=== PATIENT | female | born 1965 | race Caucasian/White ===

== ENCOUNTER → 2019-09-12 12:26 | Outpatient (CLI) | payer BC, SELFPAY ==
--- NOTE | ~2019-09-12 | US_ITS ---
EXAMINATION: US pelvic complete w TV DATE: 09/12/2019 12:55 INDICATION: Polycystic ovarian syndrome, prior endometrial ablation TECHNIQUE: Multiple transabdominal and endovaginal sonographic images of the pelvis were obtained. COMPARISON: 09/27/2018 FINDINGS: The uterus measures 7.8 x 4.3 x 5.5 cm. Hypoechoic areas of the uterus have the appearance of fibroids. One measuring 1.4 x 1.3 cm projects from the posterior uterine body and has the appearan ce of a subserosal fibroid. The endometrial complex measures 7 mm. The right ovary measures 1.8 x 1.1 x 1.7 cm. The left ovary measures 2.0 x 0.9 x 1.2 cm. There is normal vascular flow in the ovaries. There is no free fluid in the pelvis. IMPRESSION: 1. Small uterine fibroids. Reviewed, dictated and finalized at location A. IMPRESSION: 1. Small uterine fibroids.
== END ==
PROVIDERS: Visit Provider Nurse Practitioner Family
DX: E28.2 Polycystic ovarian syndrome (principal); R10.2 Pelvic and perineal pain; D25.9 Leiomyoma of uterus, unspecified
CPT/HCPCS: 76830; 76856

== ENCOUNTER → 2019-10-12 11:38 | Outpatient (CLI) | payer BC, SELFPAY ==
--- NOTE | ~2019-10-12 | MM_ITS ---
EXAMINATION: MM screening adelfo BI w isreal HISTORY: Screening TECHNIQUE: Craniocaudal and mediolateral oblique 3-D tomosynthesis images were obtained and synthetic 2-D images were generated. CAD analysis was submitted and interpreted. COMPARISON: Comparison to multiple prior studies sequentially, with oldest reviewed study dated 09/08. BREAST PARENCHYMAL COMPOSITION: There are scattered areas of fibroglandular density. FINDINGS: There is no evidence of suspicious mass, calcification, or architectural distortion to sugg est malignancy in either breast. There has been no suspicious interval change. IMPRESSION: 1. No mammographic evidence of malignancy. 2. Recommend routine screening mammography in one year. BI-RADS Category 1: Negative Reviewed, dictated and finalized at location A.
== END ==
PROVIDERS: Visit Provider Nurse Practitioner Family
DX: Z12.31 Encounter for screening mammogram for malignant neoplasm of breast (principal)
CPT/HCPCS: 77063; 77067

== ENCOUNTER 2019-11-10 17:16 | Emergency (ER) | payer BC, SELFPAY ==
[2019-11-10 17:26] VITALS: BP 205/100; PULSE 93; RESP 20; TEMP 37.2; O2SAT 99
--- NOTE | 2019-11-10 17:30 | ED.GENADULT ---
HPI - General Adult General Chief complaint: Unspecified Stated complaint: POS thrush Time Seen by Provider: 11/10/19 17:32 Source: patient and RN notes reviewed Mode of arrival: ambulatory Limitations: no limitations History of Present Illness HPI narrative: 53 year old female who presents to [facility] care with complaints of her tongue feeling sore and top of her mouth also at times, states tongue feels swollen. Patient states that she is taking doxycycline daily for Rosacea and she jus started hydroxyzine for anxiety. Minimal white patches noted on sides of tongue, roof of mouth lightly red. Throat is pink with no tonsil swelling or exudate, denies any difficulty with swallowing.Denies loss of taste or smell, no cough or any other complaints MD complaint: tongue and roof of mouth sore Onset (ago): day(s) (3) Location: mouth Radiation: non-radiation Severity: mild Severity scale (1-10): 2 Quality: burning and aching Pain Consistency: intermittent Relieving factors: none Exacerbating factors: eating Associated symptoms: denies other symptoms Treatments prior to arrival: none Related Data Home Medications Medication Instructions Recorded Confirmed aspirin [Aspir-81] 81 mg PO DAILY 11/10/19 11/10/19 cyanocobalamin (vitamin B-12) 1,000 mcg SUBCUT MONTHLY 11/10/19 11/10/19 doxycycline monohydrate 40 mg PO DAILY 11/10/19 11/10/19 ergocalciferol (vitamin D2) 1,250 mcg PO WEEKLY 11/10/19 11/10/19 [Vitamin D2] hydroxyzine HCl 10 mg PO TID PRN 11/10/19 11/10/19 valacyclovir 1,000 mg PO Q12H 11/10/19 11/10/19 Allergies Allergy/AdvReac Type Severity Reaction Status Date / Time No Known Allergies Allergy NONE Verified 11/10/19 17:45 Review of Systems Review of Systems: Narrative: CONSTITUTIONAL: Denies fever, chills, or sweats. EYES: Denies visual changes, redness, or discharge. ENT: Denies rhinorrhea, congestion, sore throat, or otalgia.States tongue and roof of mouth is sore CARDIOVASCULAR: Denies chest pain, palpitations, or edema. RESPIRATORY: Denies cough or dyspnea. GASTROINTESTINAL: Denies abdominal pain, nausea, vomiting, or diarrhea. GENITOURINARY: Denies dysuria or hematuria. SKIN: Denies rash or itching. MUSCULOSKELETAL: Denies back pain, joint pain, or myalgia. NEUROLOGIC: Denies headache, numbness, or weakness. PSYCHIATRIC: Positive anxiety or depression. All systems reviewed & are unremarkable except as noted in HPI and below PMFSH Past Medical History Medical History (Updated 11/10/19 @ 18:25 by Laura Ram NP) Anxiety and depression Arthritis DVT (deep venous thrombosis) Hypertension Kidney stones Pulmonary embolism Rosacea UTI (urinary tract infection) Surgical History Surgical History (Updated 11/10/19 @ 17:36 by Laura Ram NP) History of arthroscopic knee surgery History of dilatation and curettage Tubal ligation status Family History Family History (Updated 04/19/18 @ 14:44 by DOCTOR UNKNOWN) Mother Family history of malignant neoplasm, Onset Age: 72 Social History Social History (Updated 11/10/19 @ 18:15 by Laura Ram NP) Smoking status: Never smoker Alcohol intake: current Living arrangements: with family Gender identity (if verbalized by the patient): Female Comments At time of signature, agree with nursing past medical, surgical, social and family history. There is no relevant family history pertinent to the presenting complaint Exam Narrative: Exam Narrative: GENERAL: Well-appearing, well-nourished, and in no acute distress. HEAD: Normocephalic, atraumatic. EYES: PERRLA and EOMI. ENT: Nares clear, no rhinorrhea or epistaxis. Mucous membranes moist.TM's normal with good light reflex, tongue minimal redness with scant amount of white on edges, roof of moth lightly red, no white patches noted, throat pink with no enlarged tonsils or swelling noted. NECK: Supple.no lymphadenopathy CHEST: Clear to auscultation. No respiratory distres
[2019-11-10 17:51] VITALS: BP 180/94
== END 2019-11-10 17:59 | disposition home or self-care (01) ==
PROVIDERS: Emergency Provider Registered Nurse; PCP Nurse Practitioner Family
DX: B37.0 Candidal stomatitis (principal); M19.90 Unspecified osteoarthritis, unspecified site; I10 Essential (primary) hypertension; Z86.711 Personal history of pulmonary embolism; Z86.718 Personal history of other venous thrombosis and embolism; Z79.82 Long term (current) use of aspirin
CPT/HCPCS: 99213; G0463

== ENCOUNTER 2020-11-29 15:01 | Outpatient (CLI) | payer BC, SELFPAY ==
--- NOTE | ~2020-11-29 | MR_ITS ---
EXAMINATION: MR knee RT wo con DATE: 11/29/2020 15:46 INDICATION: Right knee pain TECHNIQUE: Magnetic resonance imaging (MRI) of the right knee was performed without intravenous contr ast. Sequences included coronal PD-weighted FSE, coronal PD-weighted FS FSE, sagittal T2-weighted FS E, sagittal PD-weighted FS FSE and axial PD weighted fat saturated FSE. COMPARISON: None. FINDINGS: Medial compartment: There is a tear of indeterminate morphology most likely either a radial or complex involving the inne r third of the posterior horn of the medial. Partial-thickness cartilage loss which appears to involv e at least 50% the cartilage thickness but without degenerative subchondral changes at the anterior t o central weightbearing medial femoral condyle. Mild chondral surface regularity along the central, m edial and posterior aspect of the medial tibial plateau. There is mild subarticular edema along the p osterior rim of the medial tibial plateau. Lateral compartment: Lateral meniscus is normal. Subtle cartilage heterogeneity suggesting partial thickness fissuring at the medial side of the anterior weightbearing lateral femoral condyle and at the central aspect of th e lateral tibial plateau. Patellofemoral compartment: Deep chondral ulceration involving greater than 50% the cartilage thickness along significant portion s of the lateral patellar facet deep chondral fissuring at the patellar apical ridge and medial facet . Additional partial thickness chondral ulceration at the central aspect of the lateral trochlea. The re is some chondral fissuring at the inferior aspect of the trochlear groove. Ligaments and tendons: Anterior and posterior cruciate ligaments are normal. The medial collateral ligament and fibular marya ateral ligament complex are normal. Mild tendinopathy without discrete tear of the patellar tendon an d distal quadriceps tendon. The visualized medial and lateral hamstring tendons as well as the ilioti bial band are normal. Fluid: Small right knee joint effusion along with mild synovitis at the suprapatellar pouch. No loose osteoc hondral bodies identified. Osseous/other: There is some red marrow reexpansion in the metaphyseal and metadiaphyseal regions of the distal femu r and proximal tibia and fibula. Otherwise normal marrow signal. No fracture or pathologic marrow rep lacing process. IMPRESSION: 1. Tear at the posterior horn of the medial meniscus, unclear whether complex or radial. 2. Mild tricompartmental osteoarthritis with regions of moderate grade chondromalacia in all 3 compar tments. 3. Small right knee joint effusion. 4. Mild tendinopathy of the extensor mechanism. Reviewed, dictated and finalized at location A. IMPRESSION: 1. Tear at the posterior horn of the medial meniscus, unclear whether complex o r radial. 2. Mild tricompartmental osteoarthritis with regions of moderate grade chondrom alacia in all 3 compartments. 3. Small right knee joint effusion. 4. Mild tendinopathy of the extensor mechanism.
== END 2020-11-29 15:02 | disposition home or self-care (01) ==
PROVIDERS: PCP Nurse Practitioner Family; Visit Provider Nurse Practitioner Family
DX: S83.241A Other tear of medial meniscus, current injury, right knee, initial encounter (principal); M17.11 Unilateral primary osteoarthritis, right knee; M67.861 Other specified disorders of synovium, right knee; X58.XXXA Exposure to other specified factors, initial encounter
CPT/HCPCS: 73721

== ENCOUNTER → 2020-12-12 14:54 | Outpatient (CLI) | payer BC, SELFPAY ==
--- NOTE | ~2020-12-12 | MM_ITS ---
EXAMINATION: MM screening adelfo BI w isreal HISTORY: Screening mammogram TECHNIQUE: Craniocaudal and mediolateral oblique 3-D tomosynthesis images were obtained and synthetic 2-D images were generated. CAD analysis was submitted and interpreted. COMPARISON: 10/12/2019, 09/27/2018, 09/08/2017 bilateral digital screening mammogram examinations BREAST PARENCHYMAL COMPOSITION: There are scattered areas of fibroglandular density. FINDINGS: Stable mild fibroglandular asymmetry and occasional benign calcifications. There is no evid ence of suspicious mass, calcification, or architectural distortion to suggest malignancy in either b reast. There has been no suspicious interval change. IMPRESSION: 1. No mammographic evidence of malignancy. 2. Recommend routine screening mammography in one year. BI-RADS Category 2: Benign finding(s). Reviewed, dictated and finalized at location A.
== END ==
PROVIDERS: PCP Nurse Practitioner Family; Visit Provider Nurse Practitioner Family
DX: Z12.31 Encounter for screening mammogram for malignant neoplasm of breast (principal)
CPT/HCPCS: 77063; 77067

== ENCOUNTER 2021-01-11 16:28 | Emergency (ER) | payer BC, SELFPAY ==
--- NOTE | 2021-01-11 16:37 | ED.FEMALEGU ---
HPI - Female Genitourinary General Chief complaint: Urogenital-Female Stated complaint: Poss UTI Time Seen by Provider: 01/11/21 16:37 Source: patient Mode of arrival: ambulatory Limitations: no limitations History of Present Illness HPI Narrative: Patrica Liang is a 55 yo female with a PMH of anticoagulation for DVT, rosacea, high cholesterol, calculi. torn meniscus and Denis's cyst, who comes with a dysuria following a yearly celebration in a hot tub. Has frequency and suprapubic pain does not feel like she can really empty her bladder fully Related Data Home Medications Medication Instructions Recorded Confirmed aspirin [Aspir-81] 81 mg PO DAILY 11/10/19 11/10/19 cyanocobalamin (vitamin B-12) 1,000 mcg SUBCUT MONTHLY 11/10/19 11/10/19 doxycycline monohydrate 40 mg PO DAILY 11/10/19 11/10/19 ergocalciferol (vitamin D2) 1,250 mcg PO WEEKLY 11/10/19 11/10/19 [Vitamin D2] hydroxyzine HCl 10 mg PO TID PRN 11/10/19 11/10/19 valacyclovir 1,000 mg PO Q12H 11/10/19 11/10/19 Allergies Allergy/AdvReac Type Severity Reaction Status Date / Time No Known Allergies Allergy NONE Verified 01/11/21 16:32 Review of Systems Review of Systems: CONSTITUTIONAL: Denies fever, chills, sweats. EYES: Denies visual changes, redness, discharge. ENT: Denies rhinorrhea, congestion, sore throat, otalgia. CARDIOVASCULAR: Denies chest pain, palpitations, edema. RESPIRATORY: Denies dyspnea, wheezing, cough GASTROINTESTINAL: Denies abdominal pain, nausea, vomiting, diarrhea. GENITOURINARY: Has dysuria, hematuria, abnormal discharge SKIN: Denies rash or itching. NEUROLOGIC: Denies numbness, or focal weakness. PSYCHIATRIC: Denies anxiety or depression. [facility] Past Medical History Medical History Anxiety and depression Arthritis DVT (deep venous thrombosis) Hypertension Kidney stones Pulmonary embolism Rosacea UTI (urinary tract infection) Surgical History Surgical History History of arthroscopic knee surgery History of dilatation and curettage Tubal ligation status Family History Family History Mother Family history of malignant neoplasm, Onset Age: 72 Social History Social History Smoking status: Never smoker Alcohol intake: current Gender identity (if verbalized by the patient): Female Comments At time of signature, I agree with nursing past medical, surgical, social and family history. There is no relevant family history pertinent to the presenting complaint. Exam Narrative: GENERAL: This is a well-nourished, well-developed patient, in mild distress. HEAD: normocephalic, atraumatic. EYES: Sclera clear/white. Vision is grossly intact. EARS: External ears normal,. Hearing grossly intact. NOSE: External nose normal without nasal discharge, nares without redness, no rhinorrhea. THROAT: Mucous membranes moist, NECK: Neck supple, CARDIOVASCULAR: Regular rate and rhythm without murmurs, gallops, or rubs. RESPIRATORY: Clear to auscultation. Breath sounds equal bilaterally. No wheezes, rales, or rhonchi. GASTROINTESTINAL: Abdomen soft, mild suprapubic discomfort SKIN: warm, intact with no suspicious lesions or rash, good texture and turgor. NEURO: awake, alert, and oriented to person, place and time. There were no obvious focal neurologic abnormalities. Steady gait EXTREMITIES: Normal range of motion. BACK: Nontender without deformity Course Course Emergency Course: Patient comes here for dysuria after experiencing an hot tub been on Macrobid earlier in the month and still has symptoms UA dip is negative for all substances Start Keflex 500 mg 1 twice daily x5 days since urine is negative encouraged to follow-up with urology if continued of symptoms Vital Signs Vital signs: Vital Signs
[2021-01-11 16:39] VITALS: BP 147/85; PULSE 103; RESP 18; TEMP 37.2; O2SAT 100
== END 2021-01-11 17:04 | disposition home or self-care (01) ==
PROVIDERS: Emergency Provider Nurse Practitioner; PCP Nurse Practitioner Family
DX: R30.0 Dysuria (principal); M19.90 Unspecified osteoarthritis, unspecified site; I10 Essential (primary) hypertension; Z86.711 Personal history of pulmonary embolism; Z86.718 Personal history of other venous thrombosis and embolism; F41.9 Anxiety disorder, unspecified; Z79.82 Long term (current) use of aspirin
CPT/HCPCS: 81003; 99213; G0463

== ENCOUNTER 2022-02-05 16:45 | Outpatient (CLI) | payer BC, SELFPAY ==
--- NOTE | ~2022-02-05 | MM_ITS ---
EXAMINATION: MM screening adelfo BI w isreal HISTORY: Screening TECHNIQUE: Craniocaudal and mediolateral oblique 3-D tomosynthesis images were obtained and synthetic 2-D images were generated. CAD analysis was submitted and interpreted. COMPARISON: Comparison to multiple prior studies sequentially, with oldest reviewed study dated 09/08. BREAST PARENCHYMAL COMPOSITION: There are scattered areas of fibroglandular density. FINDINGS: There is no evidence of suspicious mass, calcification, or architectural distortion to sugg est malignancy in either breast. There has been no suspicious interval change. IMPRESSION: 1. No mammographic evidence of malignancy. 2. Recommend routine screening mammography in one year. BI-RADS Category 1: Negative Reviewed, dictated and finalized at location A. L TECHNICIAN
== END 2022-02-05 16:46 | disposition home or self-care (01) ==
PROVIDERS: PCP Nurse Practitioner Family; Visit Provider Obstetrics & Gynecology
DX: Z12.31 Encounter for screening mammogram for malignant neoplasm of breast (principal)
CPT/HCPCS: 77063; 77067

== ENCOUNTER → 2023-03-16 12:42 | Outpatient (CLI) | payer BC, SELFPAY ==
--- NOTE | ~2023-03-16 | MM_ITS ---
EXAMINATION: MM screening adelfo BI w isreal HISTORY: Screening mammogram TECHNIQUE: Craniocaudal and mediolateral oblique 3-D tomosynthesis images were obtained and synthetic 2-D images were generated. CAD analysis was submitted and interpreted. COMPARISON: 02/05/2022, 12/12/2020, 10/12/2019 bilateral screening mammogram examinations BREAST PARENCHYMAL COMPOSITION: There are scattered areas of fibroglandular density. FINDINGS: Stable mild fibroglandular asymmetry. There is no evidence of suspicious mass, calcificatio n, or architectural distortion to suggest malignancy in either breast. There has been no suspicious i nterval change. IMPRESSION: 1. No mammographic evidence of malignancy. 2. Recommend routine screening mammography in one year. BI-RADS Category 1: Negative Reviewed, dictated and finalized at location A. CTION SPECIALIST
== END ==
PROVIDERS: PCP Obstetrics & Gynecology; Visit Provider Obstetrics & Gynecology
DX: Z12.31 Encounter for screening mammogram for malignant neoplasm of breast (principal)
CPT/HCPCS: 77063; 77067

== ENCOUNTER 2024-03-17 07:29 | Outpatient (CLI) | payer BC, SELFPAY ==
--- NOTE | ~2024-03-17 | MM_ITS ---
EXAMINATION: MM screening adelfo BI w isreal HISTORY: Screening TECHNIQUE: Craniocaudal and mediolateral oblique 3-D tomosynthesis images were obtained and synthetic 2-D images were generated. CAD analysis was submitted and interpreted. COMPARISON: 03/16/2023 and dating back to 10/12/2019 BREAST PARENCHYMAL COMPOSITION: There are scattered areas of fibroglandular density. FINDINGS: Bulky calcifications detected bilaterally, stable and benign in appearance. Stable parenchymal pattern without suspicious microcalcifications, architectural distortion, discrete masses or significant asymmetry. IMPRESSION: 1. No mammographic evidence of malignancy. 2. Recommend routine screening mammography in one year. BI-RADS Category 2: Benign finding(s). Reviewed, dictated and finalized at location A. [employer]
== END 2024-03-17 07:30 | disposition home or self-care (01) ==
LOC: MICIMG 07:29
PROVIDERS: PCP Obstetrics & Gynecology; Visit Provider Obstetrics & Gynecology
DX: Z12.31 Encounter for screening mammogram for malignant neoplasm of breast (principal)
CPT/HCPCS: 77063; 77067

== ENCOUNTER 2024-08-03 14:52 | Emergency (ER) | payer BC, SELFPAY ==
--- OUTSIDE RECORDS SUMMARY | 2024-08-03 14:55 | XMS_ITS | Encounter Summary ---
Author Organization [facility] Address [address] [place] [address] Care Team Providers Care Developer Support Engineer Name Role Phone Unavailable Primary Care Provider Unavailabl e Encounter Details Date Type Department Care Team (Late st Contact Info) Description 01/20/2024 Lab Requisition [facility] - DermPath Lab [address] [place] [address] Ada Arellano MD [address] [place] [address] [place] [address] Neoplasm of uncertain behavior of skin Social History Tobacco Use Types Packs/Day Years Used Date Smoking Tobacco: Never Assessed Comments Unknown Sex and Gender Information Value Date Recorded Sex Assigned at Not on file Legal Sex Female 10:06 AM CDT Gender Identity Not on file Sexual Orientation Not on file documented as of this encounter Plan of Treatment Not on file documented as of this encounter Procedures Procedure Name Priority Date/Time Associated Diagnosis Comments DERMATOPATHOLOGY Routine 01/19/2024 3:33 AM CDT Neoplasm of uncertain behavior of skin documented in this encounter Results * DERMATOPATHOLOGY (01/19/2024 3:33 AM CDT) Case Report Dermatopathology Report Case: [id number] Authorizing Provider: Ada Arellano MD Collected: 01/19/2024 03:33 AM Ordering Location: [facility] - Received: 01/21/2024 01:09 PM DermPath Lab Pathologist: Rosaura Irizarry MD Specimen: Skin, left buttock 2:39 PM [facility] Final Diagnosis Specimen A. 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 The specimen consists of a shave biopsy measuring 12x7x2 mm. Jar 0. 2:39 PM [facility] Microscopic Description Specimen A. SKIN, left buttock: This is a junctional nevus. There is a lentiginous proliferation of melanocytes between nests of cells along the dermal-epidermal junction, highlighted by MART-1/Melan-A immunohistochemical staining. 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 The performance characteristics of the stain(s) cited in this report were developed and its performance characteristic determined by the Dermatopathology Laboratory at [facility], directed by Dr. Heena Rosales. These tests need not be, and therefore are not, approved by the [place] Food and Drug Administration. The tests are used for clinical purposes. Billing Codes Specimen Charges Stain Charges 58149 1 98258 1 2:39 PM [facility] Embedded Images 2:39 PM [facility] Pathology/Cytolo gy TISSUE SPECIMEN FROM SKIN / Unknown 01/19/2024 3:33 AM CDT 01/21/2024 1:09 PM CDT us Ada Arellano MD LAB - PATHOLOGY/CYTOLOGY ORDERAB LES Final Result DERMATOPATHOLOGY LABORATORY [facility] - Department of Dermatology [address] [phone] documented in this encounter Visit Diagnoses Diagnosis Neoplasm of uncertain behavior of skin documented in this encounter
--- OUTSIDE RECORDS SUMMARY | 2024-08-03 14:55 | XMS_ITS | Encounter Summary ---
Author Organization [facility] Address [address] [place] [address] Care Team Providers Care Sales Operations Lead Name Role Phone Ruthy Moran Primary Care Provider [phone] Encounter Details Date Type Department Care Team (Late Contact Info) Description 09/30/2023 MyChart Message Enc [facility] Family & Internal Medicine [address] [phone] Ruthy Moran FNP [address] [place] [id number] Nathen Liang siddharth Social History Tobacco Use Types Packs/Day Years Used Date Smoking Tobacco: Never Passive Smoke Exposure: Never Smokeless Tobacco: Never Comments:Never Smoker Alcohol Use Standard Drinks/Week Comments Yes 1.7 (1 standard drink = 0.6 oz p ure alcohol) 2 shots a weekend AUDIT-C Answer Date Recorded Frequency of Alcohol Consumption 2-3 times a wee k 04/25/2018 Average Number of Drinks Not on file 019 Frequency of Binge Drinking Not on file 06/2018 PHQ-2 Answer Date Recorded Patient Health Questionnaire-2 Score 0 09/27/2023 Comments No Sex and Gender Information Value Date Recorded Sex Assigned at Not on file Legal Sex Female 6:24 PM CDT Gender Identity Not on file Sexual Orientation Not on file documented as of this encounter Plan of Treatment Upcoming Encounters Date Type Department Care Team (Late st Contact Info) Description 10/03/2024 2:40 PM CDT Office Visit [facility] Family & Internal Medicine [facility] [address] [place] [address] Ruthy Moran FNP [address] [place] [address] 10/27/2024 10:00 AM CDT Office Visit [facility] Orthopedic & Sports Medicine - [place] [address] [place] [address] Tato Tolentino PA [address] [place] [address] 11/03/2024 10:00 AM CDT Office Visit [facility] [place] [address] [place] [address] Tato Tolentino PA [address] [place] [address] 11/10/2024 10:00 AM CDT Office Visit [facility] [place] [address] [place] [address] Tato Tolentino PA [address] [place], [place] [phone] documented as of this encounter Visit Diagnoses Not on filedocumented in this encounter Additional Health Concerns Assessment Noted Time PHQ-9 Depression Total Score: 0 08/26/19 24 3:56 PM CDT documented as of this encounter Care Teams Sales Operations Lead Relationship Specialty Start Date End Date Ruthy Moran FNP [facility] [place] [address] PCP - General Nurse Practitioner Family 04/19/18 documented as of this encounter
--- OUTSIDE RECORDS SUMMARY | 2024-08-03 14:55 | XMS_ITS | Clinical Summary ---
Author Organization [facility] Address [facility] [place] [address] Care Team Providers Care Patient Account Representative Name Role Phone Kam Moran BOOKER Primary Care Provider [phone] Allergies No known active allergies Medications multi vitamin/minerals tablet Take 1 tablet by mouth daily. Active cyanocobalamin 250 MCG Tab Take 1 tablet (250 mcg total) by mouth daily. Active Collagen-Vitamin C-Biotin (COLLAGEN 1500/C OR) OTC Collagen Peptides Active omega-3 fatty acid (FISH OIL) 500 MG capsule Take 1 capsule (500 mg total) by mouth daily. Active ELIQUIS 2.5 MG tablet Take 1 tablet (2.5 mg total) by mouth 2 (two) times daily. 3 Active B-D 3CC LUER-YONATHAN SYR 25GX1 25G X 1 3 ML MiscIndications:V itamin B 12 deficiency USE DIRECTED MONTHLY FOR B12 INJECTIONS 3 each 1 4 Active magnesium oxide (MAG-OX) 250 MG tablet Take 1 tablet (250 mg total) by mouth daily. Active valACYclovir (VALTREX) 1 g tabletIndications :H/O herpes labialis take 1 tablet by mouth daily 90 tablet 1 4 Active diclofenac sodium (VOLTAREN) 1 % gelIndications:Ar thritis of right knee,Arthritis of left knee Apply 4 g topically 4 (four) times daily. 350 g 5 Active lisinopril-hydroC HLOROthiazide (ZESTORETIC) 10-12.5 MG tabletIndications :Essential hypertension TAKE 1 TABLET BY MOUTH DAILY 90 tablet 1 5 Active hydrOXYzine (ATARAX) 10 MG tabletIndications :Anxiety Take 1 tablet (10 mg total) by mouth 3 (three) times daily. TAKE 1 TABLET BY MOUTH THREE TIMES DAILY NEEDED FOR ITCHING. PLEASE CONTACT OFFICE FOR APPOINTMENT. 90 tablet 5 Active vitamin D2, ergocalciferol, (DRISDOL) 1.25 mg capsuleIndication s:Vitamin D deficiency TAKE ONE CAPSULE BY MOUTH ONE DAY A WEEK 12 capsule 5 Active Active Problems Problem Noted Date Diagnosed Date Class 2 severe obesity due t o excess calories with serious comorbidity and body mass index (BMI) of 36.0 to 36.9 in adult 10/28/2022 Arthritis of left knee 08/14/2022 Arthritis of right knee 01/30/2022 Family history of bleeding disorder 10/27/2021 Elevated fasting glucose 10/27/2021 Chronic deep vein thrombosis (DVT) of distal vein of right lower extremity ([facility]) 10/27/2021 Chronic pain of right knee 11/11/2020 Acute bilateral low back pain without sciatica 0 08/28/2020 Spasm 08/28/2020 Vitamin B 12 deficiency 06/06/2020 Acne vulgaris 06/06/2020 Anxiety 06/06/2020 Vaginal yeast infection 09/06/2019 PCOS (polycystic ovarian syndrome) 09/06/2019 Pelvic pain 09/06/2019 Other chronic pain 05/10/2019 Other fatigue 05/10/2019 Perimenopausal symptom 05/10/2019 H/O herpes labialis 04/25/2018 Vitamin D deficiency 04/25/2018 Rosacea 04/25/2018 Essential hypertension 04/25/2018 Resolved Problems Problem Noted Date Diagnosed Date Resolved Date Acute pain of right knee 09/09/2020 Lower abdominal pain 09/06/2019 024 BMI 32.0-32.9,adult 04/25/2018 08/26/19 24 Immunizations Immunization Administration Dates Next Due Fluzone 6 Months+ Quad (0.5 mL Prefilled Syringe ) 05/21/2022,03/13/2021 Influenza Adult (Generic) 02/03/2020 MODERNA COVID-19 (12+) MRNA, LNP-S, PF, 100 MCG/ 0.5 ML DOSE 06/01/2020,05/04/2020 MODERNA COVID-19 (CLINICAL LAB SPECIALIST JOANNA ITA), MRNA, LNP-S, PF, 50 MCG/ 0.25 ML DOSE 03/26/2021 Tdap (Adacel) 12/25/2021 Family History Medical History Relation Comments No Known Problems Brother CHF Father Hypertension Father Cancer Mother Lung cancer due to smoking, went to brain Hypertension Mother Lung Cancer Mother No Known Problems Sister Relation Status Comments Brother Father Mother Sister Social History Tobacco Use Types Packs/Day Years Used Date Smoking Tobacco: Never Passive Smoke Exposure: Never Smokeless Tobacco: Never Tobacco Cessation:Counseling Given: No Comments:Never Smoker Alcohol Use Standard Drinks/Week Comments Yes 1.7 (1 standard drink = 0.6 oz p ure alcohol) 2 shots a weekend AUDIT-C Answer Date Recorded Frequency of Alcohol Consumption 2-3 times a wee k 04/25/2018 Average Number of Drinks Not on file 019 Frequency of Binge Drinking Not on file 06/2018 PHQ-2 Answer Date Recorded Patient Health Questionnaire-2 Score 0 04/07/2024 Comments No Sex and Gender Information Value Date Recorded Sex Assigned at Not on file Legal Sex Female 6:24 PM CDT Gender Identity Not on file Sexual Orientation Not on file Last Filed Vital Signs Vital Sign Reading Time Taken Comments Blood Pressure 151/86 04/28/2024 11:34 AM SPEECH LANGUAGE PATHOLOGY ASSISTANT Pulse 82 04/28/2024 10:54 AM SPEECH LANGUAGE PATHOLOGY ASSISTANT Temperature 36 C (96.8 F) 04/28/2024 10:54 AM SPEECH LANGUAGE PATHOLOGY ASSISTANT Respiratory Rate 16 08/26/2023 2:45 PM CDT Oxygen Saturation 98% 04/28/2024 10: 54 AM SPEECH LANGUAGE PATHOLOGY ASSISTANT Inhaled Oxygen Concentration - - Weight 102.2 kg (225 lb 6.4 oz) 025 10:54 AM SPEECH LANGUAGE PATHOLOGY ASSISTANT Height 162.6 cm (5' 4 ) 04/28/2024 10:5 4 AM SPEECH LANGUAGE PATHOLOGY ASSISTANT Body Mass Index 38.69 04/28/2024 10:54 AM SPEECH LANGUAGE PATHOLOGY ASSISTANT Plan of Treatment Upcoming Encounters Date Type Department Care Team (Late st Contact Info) Description 10/03/2024 2:40 PM CDT Office Visit [facility] Family & Internal Medicine [id number] [place] [address] Kam Moran, [address] [address] [place] [address] 10/27/2024 10:00 AM CDT Office Visit [facility] Orthopedic & Sports Medicine [facility] [address] [place] [address] Tato Tolentino PA [address] [place] [address] 11/03/2024 10:00 AM CDT Office Visit [facility] Orthopedic & Sports Medicine [facility] [address] [place] [address] Tato Tolentino PA [address] [place], [place] [id number] 11/10/2024 10:00 AM CDT Office Visit [facility] Orthopedic & Sports Medicine [facility] [address] [place] [address] Tato Tolentino, BETH [address] [place] [address] Health Maintenance Due Date Last Done Comments Hepatitis C 12/03/1985 Hepatitis B Vaccines (1 of 3 - 19+ 3-dose series) 12/03/1986 Pneumococcal Vaccine: 50+ Years (1 of 1 - PCV) 12/03/2017 Annual Physical 10/28/2023 10/27/2022, 11/11/2020 Cervical Cancer Screening Pap Smear (Age 30 to 64) Every 3 Years 11/12/2023 11/11/2020, 09/06/2019 COVID-19 Vaccine (2023- season) 2023 03/26/2021, 06/01/2020, 05/04/2020 Zoster Vaccines (1 of 2) 08/25/2024 Pos tponed from 12/03/2017 (Going to Outside Clinic) Cervical Cancer Screening Pap with HPV Testing (Age 30 to 64) Every 5 Years 11/11/2025 11/11/2020, 09/06/2019 Cervical Cancer Screening with HPV 11/11/2025 Mammogram Screening 03/17/2026 03/17/2024, 02/05/2022, 12/12/2020, Additional history exists Colorectal Cancer Screening Colonoscopy (10 Years) 06/22/2028 06/22/2018 DTaP, Tdap and Td Vaccines (2 - Td or Tdap) 12/26/2031 12/25/2021 PHQ-2 (Physician Papillion) Completed 04/07/2024 Meningococcal B Vaccine Aged Out No l onger eligible based on patient's age to complete this topic Meningococcal Vaccine Aged Out No anurag randolph eligible based on patient's age to complete this topic RSV Immunizations Under 20 Months Aged Out No longer eligible based on patient's age to complete this topic Procedures Procedure Name Priority Date/Time Associated Diagnosis Comments MAMMOGRAM GENERIC (SCAN ORDER) 03/17/2024 HUMAN PAPILLOMAVIRUS, HIGH-RISK TYPES Routine 11/11/2020 12:00 PM CDT CYTOPATH CERV/VAG THIN LAYER Routine 11/11/2020 6:19 AM CDT COLONOSCOPY GENERIC (SCAN ORDER) Routine 06/22/2018 12:00 AM CDT from Last 3 Months or Most Recently Relevant to Health Maintenance Results * MAMMOGRAM GENERIC (SCAN ORDER) (03/17/2024) Anatomical Region Laterality Modality Other 03/17/2024 [facility] Scanned SCANNING Final Resu lt * (ABNORMAL) HUMAN PAPILLOMAVIRUS, HIGH-RISK TYPES (11/11/2020 12:00 PM CDT) SPEC DESCRIPTION CERVICAL/ ENDOCERVI JESSICA 11/14/2020 7:49 AM CDT [facility] HPV DNA HIGH RISK POSITIVE( A) NEGATIVE 11/15/2020 10:31 AM CDT [facility] Comment:SEE CYTOLOGY REPORT 11/11/2020 12:0 0 PM CDT Kam CELESTE PATHOLOGY/CYTOLOGY ORDERABLES Final Result [facility] [address] [place] [address], * Cytopath Cerv/Vag Thin Layer (11/11/2020 6:19 AM CDT) THIN PREP PAP [facility] [address] [place] [address] Department of Pathology Pathology Report CERVICAL/VAGINAL PAP SMEAR REPORT Name: PATRICA LIANG Age: 9 1965 (Age: 54) Location: [facility] Sex: F Collected Date: 11/11/2020 [facility] #: [id number] Date Received: 11/14/2020 Date Reported: 11/19/2020 Provider: KAM CELESTE-C INTERPRETATION CERVICAL/ENDOCERVI JESSICA: SATISFACTORY FOR EVALUATION. ENDOCERVICAL/TRANS FORMATION ZONE COMPONENT PRESENT. NEGATIVE FOR INTRAEPITHELIAL LESION OR MALIGNANCY. POSITIVE FOR HIGH RISK HPV. The FDA approved Aptima HPV assay is an in vitro nucleic acid amplification test for the qualitative detection of E6/E7 viral messenger RNA (mRNA) from 14 high-risk types of human papillomavirus (HPV) in cervical specimens. The high-risk HPV types detected by the assay include: 16,18,31,33,35,39, 45,51,52,56,58,59, 66, and 68. Electronically Signed Out МАРИЯ Salas (ASCP) CLINICAL HISTORY Z12.4 Z11.51 SCREENING PAP TEST AND SCREENING HPV ThinPrep Pap Test with HR HPV testing requested. Date of Last Menstrual Period: 11/07/20 Menstrual Status: Irregular SPECIMEN SUBMITTED CERVICAL/ENDOCERVI JESSICA Specimen Received:1 Thin Prep Vial, Image Assisted Pap (SMD) Please note: The Pap smear is not a diagnostic test. It is a screening test. Negative results on combined screening (Pap test and HPV-DNA) have a high negative predictive value (99.1-100 percent) for cervical cancer. The pap test is not effective in detecting cervical adenocarcinoma. [facility] 11/11/2020 6:19 AM CDT 11/14/2020 6:19 AM CDT Comment:CERVICAL/ENDOCERVICA L Kam CELESTE PATHOLOGY/CYTOLOGY ORDERABLES Final Result [facility] [address] [place] [address], * COLONOSCOPY (06/22/2018 12:00 AM CDT) 06/22/2018 us Documents Scanned SCANNING Final Result Performing Organization Address City/[facility]/ZIP Co de Phone Number [facility] [address] [address] from Last 3 Months or Most Recently Relevant to Health Maintenance Insurance [facility] Care Teams Patient Account Representative Relationship Specialty Start Date End Date Kam Moran FNP [address] [place] [phone] PCP - General Nurse Practitioner Family 04/19/18
--- OUTSIDE RECORDS SUMMARY | 2024-08-03 14:55 | XMS_ITS | Clinical Summary ---
Author Organization [facility] Address [address] [place] [address] Care Team Providers Care Quality Assurance Tech Name Role Phone Ruthy Moran APRN, CNP Primary Care Provider Allergies No known active allergies Medications cyanocobalamin (VITAMIN B-12) 1000 MCG/ML Solution INJECT 1ML IN THE MUSCLE EVERY MONTH 06/24/19 23 Active valACYclovir (VALTREX) 1 GM Tablet Take 1,000 mg by mouth daily. 07/22/19 22 Active ergocalciferol (VITAMIN D) 64762 UNIT Capsule TAKE 1 CAPSULE BY MOUTH EVERY WEEK 05/21/19 23 Active lisinopril-hydroCHL OROthiazide (PRINZIDE, ZESTORETIC) 10-12.5 MG Tablet Take 1 Tablet by mouth daily. 07/04/19 23 Active hydrOXYzine (ATARAX) 10 MG Tablet hydroxyzine HCl 10 mg tablet TAKE 1 TABLET BY MOUTH THREE TIMES DAILY NEEDED FOR ITCHING 12/28/19 21 Active Multiple Vitamin (MULTIVITAMIN PO) Take by mouth daily. Active Furlong-3 Fatty Acids (Furlong-3 Fish Oil) 500 MG Capsule Take 500 mg by mouth. Active Cyanocobalamin (VITAMIN B 12 PO) Take by mouth. Otc capsule Active apixaban (Eliquis) 2.5 MG TabletIndications:H istory of Thromboembolic Disease,Prophylaxis of Venous Thromboembolism Take 1 Tablet by mouth 2 times daily. Indications: History of Disease involving a Thrombosis or an Embolism, Prevention of Unwanted Clot in Veins 180 Tablet 1 03/03/20 24 Active Active Problems No known active problems Immunizations Immunization Administration Dates Next Due Covid-19, Mrna, Lnp-s, PF, 5 0 mcg/0.25 mL dose (Moderna) 03/26/2021 Family History Medical History Relation Name Comments Heart Attack Father Cerebral Anuerysm Mother Lung Cancer Mother Relation Name Status Comments Brother Alive Father Mother Social History Tobacco Use Types Packs/Day Years Used Date Smoking Tobacco: Never Smokeless Tobacco: Never Tobacco Cessation:Counseling Given: Not Answered Alcohol Use Standard Drinks/Week Comments Yes 1 (1 standard drink = 0.6 oz pur e alcohol) 2 times a week Comments Unknown Sex and Gender Information Value Date Recorded Sex Assigned at Not on file Legal Sex Female 11:29 AM PORCELAIN ENAMEL SPRAYER Gender Identity Not on file Sexual Orientation Not on file Last Filed Vital Signs Vital Sign Reading Time Taken Comments Blood Pressure 136/88 08/03/2023 3:07 PM CDT Pulse 86 08/03/2023 3:07 PM CDT Temperature 36.7 C (98 F) 08/03/2023 3:07 PM CDT Respiratory Rate 18 08/03/2023 3:07 PM CDT Oxygen Saturation 97% 08/03/2023 3:07 PM CDT Inhaled Oxygen Concentration - - Weight 98.3 kg (216 lb 12.8 oz) 08/03/2023 3:07 PM CDT Height 162.6 cm (5' 4 ) 08/03/2023 3:07 PM CDT Body Mass Index 37.21 08/03/2023 3:07 PM CDT Plan of Treatment Upcoming Encounters Date Type Department Care Team (Late st Contact Info) Description 08/15/2024 1:00 PM CDT Lab [facility] [address] [address] Lab, [facility] 08/15/2024 1:15 PM CDT Office Visit [facility] [address] [address] Dillon Prieto, [address] [place] [address] Health Maintenance Due Date Last Done Comments Hepatitis C Virus (HCV) Screening 1965 Mammogram 1965 Hepatitis B Immunization (1 of 3 - 19+ 3-dose series) 12/03/1986 HPV/Cotest 12/03/1997 Cologuard 12/03/2017 Immunochemical Fecal Occult Blood 12/03/2017 Pneumococcal Immunization (5 0+ years) (1 of 1 - PCV) 12/03/2017 Zoster Immunization (1 of 2) 12/03/2017 Cervical Cancer Screening (CCS) 11/12/2023 Pap Smear 11/12/2023 11/11/2020 SARS-COV-2 Immunization ( season) 2023 03/26/2021, 06/01/2020, 05/04/2020 Influenza Immunization (Seas on Ended) 2024 05/21/2022, 03/13/2021, 02/03/2020 Colonoscopy 06/22/2028 06/22/2018 Colorectal Cancer Screening 06/22/2028 Respiratory Syncytial Virus (RSV) Immunization (Adult) (1 - 1-dose 75+ series) 12/03/2042 06/22/2018 DTaP/Tdap/Td Immunization Discontinued 12/25/2021 TdaP Immunization Completed 12/25/2021 Human Papillomavirus (HPV) Immunization Aged Out No longer eligible based on patient's age to complete this topic Meningococcal Immunization (ACWY) Aged Out No longer eligible based on patient's age to complete this topic Rotavirus Immunization Aged Out No lo nger eligible based on patient's age to complete this topic Insurance [facility] Care Teams Quality Assurance Tech Relationship Specialty Start Date End Date Ruthy Moran, PERSHING MISSILE CREWMEMBER, REGULATOR PIN INSERTER [address] [place] [address] [phone] PCP - General Internal Medicine 05/25/22
--- OUTSIDE RECORDS SUMMARY | 2024-08-03 14:55 | XMS_ITS | Clinical Summary ---
Author Organization [employer] [facility] Address [address] Attn: Epic Prelude ADT [place] NAAV [phone] Care Team Providers Care Medart Operator Name Role Phone Ruthy Moran Primary Care Provider [phone] Social History Tobacco Use Types Packs/Day Years Used Date Smoking Tobacco: Never Assessed Comments Unknown Sex and Gender Information Value Date Recorded Sex Assigned at Not on file Legal Sex Female 11:55 AM CDT Gender Identity Not on file Sexual Orientation Not on file Plan of Treatment Health Maintenance Due Date Last Done Comments DTAP/TDAP/TD VACCINES (1 - Tdap) 12/03/1986 HEPATITIS B VACCINES (1 of 3 - 19+ 3-dose series) 12/03/1986 HPV/Cotest (21-29) 12/03/1988 HPV/Cotest (30-65) 12/03/1997 FIT-DNA Q 3 years 12/03/2012 FIT/FOBT Q 1 year 12/03/2012 Flex Sig/CT Colonography Q 5 years 12/03/2012 ZOSTER VACCINE (1 of 2) 12/03/2017 BREAST CANCER SCREENING 10/11/2020 10/12/19 20, 10/12/2019, 09/27/2018, Additional history exists CERVICAL CANCER SCREENING 09/05/2022 PAP SMEAR 09/05/2022 09/06/2019, 02/19, 08/30/2018, Additional history exists INFLUENZA VACCINE (#1) 2023 COLORECTAL SCREENING 06/22/2028 06/22/2018, 06/23/19 Colorectal Cancer Screening 06/22/2028 Care Teams Medart Operator Relationship Specialty Start Date End Date Ruthy Moran FNP [address] [place] [phone] PCP - General Nurse Practitioner Family 04/19/18
--- OUTSIDE RECORDS SUMMARY | 2024-08-03 14:55 | XMS_ITS | Encounter Summary ---
Author Organization [facility] Address [address] [place] [address] Care Team Providers Care Poiser Name Role Phone Ruthy Moran Primary Care Provider [phone] Encounter Details Date Type Department Care Team (Late st Contact Info) Description 09/25/2022 MyCYot Message Enc [facility] Family & Internal Medicine [phone] [place] [address] Ruthy Moran FNP [address] [place] [address] Elbow pain Social History Tobacco Use Types Packs/Day Years [...] Date Recorded Patient Health Questionnaire-2 Score 0 08/14/2022 Comments No Sex and Gender Information Value Date Recorded Sex Assigned at Not on file Legal Sex Female 6:24 PM CDT Gender Identity Not on file Sexual Orientation Not on file documented as of this encounter Progress Notes * BOOKER May - 09/28/2022 8:24 AM CDT Can we call her to see what her symptoms are please. Was there an injury? I know she has seen trevor in the past for her knee pain also documented in this encounter Plan of Treatment Upcoming Encounters Date Type Department Care Team (Late st Contact Info) Description 10/03/2024 2:40 PM CDT Office Visit [facility] Family & Internal Medicine [address] [place] [address] Ruthy Moran FNP [address] [place] [address] 10/27/2024 10:00 AM CDT Office Visit [facility] Orthopedic & Sports Medicine [place] [address] [place] [address] Tato Tolentino PA [address] [place] [address] 11/03/2024 10:00 AM CDT Office Visit [facility] Orthopedic & Sports Medicine - [place] [address] [place] [address] Tato Tolentino PA [address] [place] [address] 11/10/2024 10:00 AM CDT Office Visit [facility] Orthopedic & Sports Medicine - [place] [address] [place] [address] Tato Tolentino PA [address] [place] [address] documented as of this encounter Visit Diagnoses Not on filedocumented in this encounter Additional Health Concerns Assessment Noted Time PHQ-9 Depression Total Score: 1 06/10/19 22 3:56 PM CDT documented as of this encounter Care Teams Poiser Relationship Specialty Start Date End Date Ruthy Moran FNP [address] [place], [place] [phone] PCP - General Nurse Practitioner Family 04/19/18 documented as of this encounter
--- OUTSIDE RECORDS SUMMARY | 2024-08-03 14:55 | XMS_ITS | Clinical Summary ---
Author Organization [facility] Address [address] [place] [address] Care Team Providers Care Computer Systems Security Administrator Name Role Phone Unavailable Primary Care Provider Unavailabl e Source Comments [facility] [employer],non-owned Affiliates and Associated Physician Practices is amultiple site organization consisting of ambulatory clinics and hospital sitesin [place], [place], [place] and [place]. This disclosure is being madepursuant to the Care Everywhere program and may not contain all information available regarding this patient. Last updated 17.[facility] Social History Tobacco Use Types Packs/Day Years Used Date Smoking Tobacco: Never Assessed Comments Unknown Sex and Gender Information Value Date Recorded Sex Assigned at Not on file Legal Sex Female 10:06 AM CDT Gender Identity Not on file Sexual Orientation Not on file Plan of Treatment Health Maintenance Due Date Last Done Comments COLOGUARD (AGES 45-75) - COL ON CA SCREENING 1965 COLON MONITORING 1967 COLONOSCOPY - COLON CA SCREENING 1967 CT COLONOGRAPHY - COLON CA SCREENING 1965 Colorectal Cancer Screening 1965 FIT - COLON CA SCREENING 1967 FLEX SIG - COLON CA SCREENING 1965 LIPID TESTING 1965 MAMMOGRAM 1965 PAP SMEAR 1967 HIV SCREENING 12/03/1982 HEPATITIS C SCREENING 11/29/1985 DTAP/TDAP/TD VACCINES (1 - Tdap) 12/03/1986 HEPATITIS B VACCINE (1 of 3 - 19+ 3-dose series) 12/03/1986 PNEUMOCOCCAL VACCINE 50+ (1 of 1 - PCV) 12/03/2017 ZOSTER VACCINE (1 of 2) 12/03/2017 COVID-19 VACCINE ( - 2023-2 5 season) 2023 DEPRESSION SCREENING 03/22/2024 INFLUENZA VACCINE (Season Ended) 2024 HIB VACCINE Aged Out No longer eligi ble based on patient's age to complete this topic HPV VACCINE Aged Out No longer eligi ble based on patient's age to complete this topic MENINGOCOCCAL (Group B) VACC INE SHARED DECISION-MAKING Aged Out No longer eligibl e based on patient's age to complete this topic MENINGOCOCCAL GROUPS A/C/Y/W VACCINE Aged Out No longer eligible b ased on patient's age to complete this topic Insurance [employer]
--- OUTSIDE RECORDS SUMMARY | 2024-08-03 14:55 | XMS_ITS | Encounter Summary ---
Author Organization [facility] Address [address] [place] [address] Care Team Providers Care Cloth Booker Name Role Phone Ruthy Moran BOOKER Primary Care Provider [phone] Encounter Details Date Type Department Care Team (Late Contact Info) Description 04/10/2024 Essens[employer] Message Enc [facility] Orthopedic & Sports Medicine [address] [address] [employer] Provider Harsh Bailey Social History Tobacco Use Types Packs/Day Years [...] Encounters Date Type Department Care Team (Late Contact Info) Description 10/03/2024 2:40 PM CDT Office Visit [facility] Family & Internal Medicine [address] [address] Ruthy Moran FNP [address] [place] [address] 10/27/2024 10:00 AM CDT Office Visit [facility] Orthopedic & Sports Medicine - [place] [address] [place] [address] Tato Tolentino PA [address] [place] [address] 11/03/2024 10:00 AM CDT Office Visit [facility] Orthopedic & Sports Medicine - [place] [address] [place] [address] Tato Tolentino PA [address] [place] [address] 11/10/2024 10:00 AM CDT Office Visit [facility] Orthopedic & Sports Medicine - [place] [address] [place] [address] Tato Tolentino PA [address] [place] [address] documented as of this encounter Visit Diagnoses Not on filedocumented in this encounter Additional Health Concerns Assessment Noted Time PHQ-9 Depression Total Score: 0 08/26/19 24 3:56 PM CDT documented as of this encounter Care Teams Cloth Booker Relationship Specialty Start Date End Date Ruthy Moran FNP [address] [place] [phone] PCP - General Nurse Practitioner Family 04/19/18 documented as of this encounter
[2024-08-03 15:01] VITALS: BP 171/89; PULSE 92; RESP 18; TEMP 36.2; O2SAT 97
--- NOTE | 2024-08-03 15:12 | ED.URI ---
HPI - URI/Sore Throat General Chief Complaint: Upper Respiratory Infection Stated Complaint: throat pain/ear ache Time Seen by Provider: 08/03/24 15:05 Source: patient Mode of arrival: ambulatory Limitations: no limitations History of Present Illness HPI Narrative: Patrica is a 58-year-old female patient presenting to the clinic today with complaints of sinus congestion, sinus pressure, cough, yellow nasal drainage, feeling fevers, headache, and bilateral ear pain. Reports symptoms have been going on for over 1 week. She is traveling down to [place] today. Denies any chest pain or shortness of breath. Has a nonproductive cough. MD elicited complaint: sore throat and nasal congestion Related Data Home Medications Medication Instructions Recorded Confirmed Last Taken Type aspirin 81 mg tablet,delayed 81 mg PO DAILY 11/10/19 11/10/19 Unknown History release (Aspir-) cyanocobalamin (vitamin B-12) 1,000 mcg subcut MONTHLY 11/10/19 11/10/19 Unknown History 1,000 mcg/mL injection kit ergocalciferol (vitamin D2) 1,250 1,250 mcg PO WEEKLY 11/10/19 11/10/19 Unknown History mcg (50,000 unit) capsule (Vitamin D2) hydroxyzine HCl 10 mg tablet 10 mg PO TID PRN Anxiety 11/10/19 11/10/19 Unknown History valacyclovir 1 gram tablet 1,000 mg PO Q12H 11/10/19 11/10/19 Unknown History Allergies Allergy/AdvReac Type Severity Reaction Status Date / Time No Known Allergies Allergy NONE Verified 08/03/24 15:10 Review of Systems Review of Systems: Pertinent positives per HPI. Patient denies any fever, chills, rash, headache, visual changes, dizziness, cough, shortness of breath, chest pain, palpitations, nausea, vomiting, diarrhea, constipation, abdominal pain, or any urinary issues. [facility] Past Medical History Medical History Anxiety and depression Arthritis DVT (deep venous thrombosis) Hypertension Kidney stones Pulmonary embolism Rosacea UTI (urinary tract infection) Surgical History Surgical History History of arthroscopic knee surgery History of dilatation and curettage Tubal ligation status Family History Family History Mother Family history of malignant neoplasm, Onset Age: 72 Social History Social History Smoking status: Never smoker Alcohol intake: current Living arrangements: with family Gender identity (if verbalized by the patient): Female Comments At the time of my signature, I reviewed and agree with the nursing past medical, surgical, social, and family history. There is no relevant family history pertinent to the patient complaint. Exam Narrative: General: Well-developed, well nourished, in no apparent distress Head: Normocephalic, atraumatic Eyes: Pupils equally round and reactive to light bilaterally, EOM intact, sclera and conjunctive clear, no discharge, lids normal Ears: TMs intact and congested, ear canals clear, no drainage, grossly hearing normal. Nose: Nares patent, yellow nasal discharge, moderate inflammation, maxillary sinus tenderness. Mouth: Oral pharynx without lesions or masses, good dentition, MMM. Neck: Supple, trachea midline, no enlargement of anterior or posterior cervical nodes, no thyroid masses or goiter palpable. Cardio: Regular rate and rhythm, s1 and s2 normal, no murmur appreciated. Resp: Clear to auscultation bilaterally, no rhonchi, rales, wheezing or rubs Course Course Emergency Course: Portions of this record may have been created with voice recognition software. Level of Care: Express Care Visit Vital Signs Vital signs: Vital Signs Temperature 36.2 C L 08/03/24 15:01 Pulse Rate 92 08/03/24 15:01 Respiratory Rate 18 08/03/24 15:01 Blood Pressure 171/89 H 08/03/24 15:01 Pulse Oximetry 97 08/03/24 15:01 Oxygen Delivery Room Air 08/03/24 15:01 Temperature 36.2 C L 08/03/24 15:01 Pulse Rate 92 08/03/24 15:01 Respiratory Rate 18 08/03/24 15:01 Blood Pressure 171/89 H 08/03/24 15:01 Pulse Oximetry 97 08/03/24 15:01 Oxygen Delivery Room Air 08/03/24 15:01 Vital signs reviewed MDM - URI/Sore Throat MDM Narrative Medical decision making narrative: At the time of visit patient is resting comfortably on the exam table. Patient appears to be nontoxic. Plan: I suspect patient has acute bacterial rhinosinusitis. Prescription for Augmentin and prednisone was sent to the pharmacy. Will also send in prescription for Diflucan as patient does get vaginal yeast infections when taking antibiotics. Supportive measures were discussed with the patient and they voiced understanding discharge instructions and agrees to treatment plan. Return precautions reviewed Differential Diagnosis Differential diagnosis: Likely upper respiratory infection, otitis media, sinusitis, viral infection, bronchitis, influenza, pharyngitis and other (COVID) Discharge Plan Discharge Clinical Impression: Acute bacterial rhinosinusitis Patient Disposition: Home Condition: Stable Instructions: Antibiotic Form, Rhinosinusitis (ED) Additional Instructions: Take prescription medications only as prescribed-prednisone, Augmentin, and Diflucan May take Coricidin HBP for cold/flu symptoms Increase fluids and stay well hydrated Tylenol/motrin for pain/fever Flonase and OTC antihistamines as directed Vicks vapor rub to open sinuses Sinus rinses for congestion Cepacol spray, cough drops, throat lozenges, warm tea with honey/lemon, gargle salt water to soothe throat BRAT diet for diarrhea Clear liquids x 24 hours then advance as tolerated for nausea/vomiting Go to the ED if you develop a worsening in your condition- high fever not controlled by Tylenol or Motrin, dehydration, weakness, lethargy, shortness of breath, or chest pain. Follow up with your PCP in 3-5 days if symptoms persist. Patient Language: Emirati Prescriptions: New fluconazole 150 mg tablet 150 mg PO ONCE Qty: 2 0RF Rx Instructions: as a single dose. May repeat in 72 hours if needed. prednisone 20 mg tablet 40 mg PO DAILY 5 Days Qty: 10 0RF amoxicillin-pot clavulanate 875-125 mg tablet 1 tablet PO Q12H 10 Days Qty: 20 0RF No Action hydroxyzine HCl 10 mg Tablet 10 mg PO TID PRN (Reason: Anxiety) valacyclovir 1 gram Tablet 1,000 mg PO Q12H aspirin [Aspir-81] 81 mg Tablet,Delayed Release (Dr/Ec) 81 mg PO DAILY ergocalciferol (vitamin D2) [Vitamin D2] 1,250 mcg (50,000 unit) Capsule 1,250 mcg PO WEEKLY cyanocobalamin (vitamin B-12) 1,000 mcg/mL Kit 1,000 mcg SUBCUT MONTHLY nystatin 100,000 unit/mL suspension 4 ml PO QID 7 Days Qty: 112 0RF Rx Instructions: swish and swallow Follow-up/Referrals: MURPHY,EILEEN HUMPHREY [Primary Care Provider] - Time of Disposition: 15:09 Quality NIHSS Nursing Documentation ED NIHSS nursing documentation: reviewed/agree
== END 2024-08-03 15:12 | disposition home or self-care (01) ==
PROVIDERS: Emergency Provider Nurse Practitioner Family; PCP Nurse Practitioner Family
DX: J01.90 Acute sinusitis, unspecified (principal); B96.89 Other specified bacterial agents as the cause of diseases classified elsewhere; I10 Essential (primary) hypertension; Z86.718 Personal history of other venous thrombosis and embolism
CPT/HCPCS: 99213; G0463

== ENCOUNTER 2025-03-20 10:34 | Outpatient (CLI) | payer BC, SELFPAY ==
--- NOTE | ~2025-03-20 | MM_ITS ---
EXAMINATION: MM screening adelfo BI w isreal HISTORY: Screening TECHNIQUE: Craniocaudal and mediolateral oblique 3-D tomosynthesis images were obtained and synthetic 2-D images were generated. CAD analysis was submitted and interpreted. COMPARISON: 2023, 2022, and 2021 BREAST PARENCHYMAL COMPOSITION: There are scattered areas of fibroglandular tissue. FINDINGS: No suspicious masses are seen. There are no suspicious calcifications. No unexplained architectural distortion is seen. There are no skin or nipple abnormalities identified. There is no adenopathy seen on the images submitted. IMPRESSION: No mammographic evidence to suggest malignancy is seen. The patient may return to screening mammography as per ACR guidelines. BI-RADS 1 - Negative. Reviewed, dictated and finalized at location [facility]
== END 2025-03-20 10:35 | disposition home or self-care (01) ==
LOC: MICIMG 10:35
PROVIDERS: PCP Obstetrics & Gynecology; Visit Provider Obstetrics & Gynecology
DX: Z12.31 Encounter for screening mammogram for malignant neoplasm of breast (principal)
CPT/HCPCS: 77063; 77067